=== PATIENT | male | born 1985 | race Caucasian/White ===

== ENCOUNTER 2021-06-11 12:00 | Emergency (ER) | payer OTHER ==
[~2021-06-11] VITALS: Ht 167.6 cm; Wt 65.8 kg
[2021-06-11 12:04] VITALS: BP 134/85
--- NOTE | 2021-06-11 12:16 | NUR ---
Dr. Porter with pt for MSE
[2021-06-11 12:19] VITALS: BP 134/85
[2021-06-11] MEDS ORDERED: TRAM50TA1 PO (12:26)
--- NOTE | 2021-06-11 12:35 | NUR ---
d/c with VSS. d/c education givne. opportunity to ask questions givne and answered. rx of tramadol given.
== END 2021-06-11 12:36 | disposition home or self-care (01) ==
LOC: MED 12:00
DX: G89.29 Other chronic pain (principal); M54.59 Other low back pain; Z76.0 Encounter for issue of repeat prescription
CPT/HCPCS: 99281